=== PATIENT | male | born 1955 | race Caucasian/White ===

== ENCOUNTER 2019-09-07 11:07 | Emergency (ER) | payer OTHER ==
--- OUTSIDE RECORDS SUMMARY | 2019-09-07 11:19 | XMS REPORT | Continuity of Care Document ---
:1955 External Reference #:[id number] Author Name Keith Dahl DO FACC (transmitted by agent of provider Viv Hoskins) Address 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 Problems Description No Information Available Social History Type Date Description Comments Sex Unknown ETOH Use Occasionally consumes alcohol Tobacco Use Start: Unknown Patient has never smoked Recreational Drug Use Denies Drug Use Smoking Status Reviewed: 08/07/19 Patient has never smoked Exercise Type/Frequency Exercises regularly Allergies, Adverse Reactions, Alerts Active Allergies Reaction Severity Comments Date Amlodipine felt better after stopped taking it 08/07/2019 Medications Active Medications SIG Qnty Indications Ordering Provider Date Lisinopril 1 by mouth every Unknown 10mg Tablets day Multi Vitamin 1 by mouth every Unknown Tablets day Magnesium 1 by mouth every Unknown 250mg Tablets day Zinc OTC Unknown Potassium/ OTC Unknown Vitamin B Complex 1 by mouth every Unknown Tablets day History Medications Mag-200 1 by mouth every 60tabs Keith Dahl DO 08/07/2019 - 200mg day FACC 08/06/2019 Tablets Immunizations Description No Information Available Vital Signs Date Vital Result Comment 08/07/2019 11:27am Height 67 inches 5'7" Weight 194.00 lb without shoes Heart Rate 54 /min BP Systolic Sitting 124 mmHg lue reg cuff BP Diastolic Sitting 74 mmHg lue reg cuff BP Systolic Standing 118 mmHg lue reg cuff BP Diastolic Standing 72 mmHg lue reg cuff Respiratory Rate 14 /min BMI (Body Mass Index) 30.4 kg/m2 Ejection Fraction none Results Description No Information Available Procedures Date Code Description Status 08/07/2019 51520 EKG Tracing & Interpretation Completed Medical Devices Description No Information Available Encounters Description No Information Available Assessments Date Code Description Provider 08/07/2019 I71.2 Thoracic aortic aneurysm, without rupture Keith Dahl DO FACC Plan of Treatment Future Appointment(s):08/11/2019 10:00 am - Keith Dahl DO [facility]ACC at [facility] [place]08/07/2019 - Keith Dahl DO FACCI71.2 Thoracic aortic aneurysm, without ruptureNew Orders:Echocardiogram, Scheduled: Follow up:Schedule echo at [facility] [place] may need definity f/u 1 year Functional Status Description No Information Available Mental Status Description No Information Available Referrals Description No Information Available
--- OUTSIDE RECORDS SUMMARY | 2019-09-07 11:19 | XMS REPORT | Continuity of Care Document ---
:1955 External Reference #:[id number] Demographics Phone Unavailable Preferred Language Unknown Marital Status Unknown Oriental Orthodox Affiliation Unknown Race Unknown Ethnic Group Unknown Author Name Brooklyn Kang Description No Information Available Social History Type Date Description Comments Sex Unknown Allergies, Adverse Reactions, Alerts Description No Information Available Medications Description No Information Available Immunizations Description No Information Available Vital Signs Description No Information Available Results Description No Information Available Procedures Description No Information Available Medical Devices Description No Information Available Encounters Description No Information Available Assessments Description No Information Available Plan of Treatment No Information Available Functional Status Description No Information Available Mental Status Description No Information Available Referrals Description No Information Available
[2019-09-07 12:27] VITALS: BP 0/0
--- NOTE | 2019-09-07 12:35 | ED ---
Laceration/Wound HPI - HPI Summary HPI Summary: Patient is a 63yo M presenting to the ED with a right eyebrow laceration. Patient states he was sitting on a bench at a basketball game when he was struck by an opponent. He believes he scraped his head on the bleachers. Minimal bleeding. He also sustained an abrasion without bleeding to the R upper arm. Denies any pain to the arm, but endorses pain to the R eyebrow. This is mild, rated 2/10. Denies other injuries. Denies bleeding currently. - History of Current Complaint Stated Complaint: EYE LAC PER PT Time Seen by Provider: 09/07/19 11:29 Hx Obtained From: Patient Mechanism of Injury: Sharp/Blunt Trauma Onset/Duration: Sudden Onset Aggravating: Movement Alleviating: Compression Timing: Constant Onset Severity: Mild Pain Intensity: 3 Pain Scale Used: 0-10 Numeric Associated Signs & Symptoms: Negative - Allergy/Home Medications Allergies/Adverse Reactions: Allergies Allergy/AdvReac Type Severity Reaction Status Date / Time No Known Allergies Allergy Verified 09/07/19 11:11 PMH/Surg Hx/FS Hx/Imm Hx Previously Healthy: Yes Infectious Disease History: No Infectious Disease History: Denies: Traveled Outside the [place] in Last 30 Days - Social History Occupation: Unemployed Lives: With Family Alcohol Use: Occasionally Hx Substance Use: No Substance Use Type: Reports: None Hx Tobacco Use: No Smoking Status (MU): Never Smoked Tobacco Review of Systems Negative: Fever, Chills, Fatigue, Skin Diaphoresis Negative: Epistaxis, Dental Pain Negative: Palpitations, Chest Pain Negative: Arthralgia, Myalgia Positive: Other - abrasion to the R upper arm; laceration to the R eyebrow Neurological/Mental Status: Negative All Other Systems Reviewed And Are Negative: Yes Physical Exam Triage Information Reviewed: Yes Vital Signs On Initial Exam: Initial Vitals Temp Pulse Resp BP Pulse Ox 98.6 F 60 18 175/110 98 09/07/19 11:10 09/07/19 11:10 09/07/19 11:10 09/07/19 11:10 09/07/19 11:10 Vital Signs Reviewed: Yes Appearance: Positive: Well-Appearing, Well-Nourished Skin: Positive: Warm, Skin Color Reflects Adequate Perfusion, Other - laceration R eyebrow - 3cm superifical Head/Face: Positive: Normal Head/Face Inspection Eyes: Positive: EOMI, KATIE Neck: Positive: Supple Respiratory/Lung Sounds: Positive: Breath Sounds Present Cardiovascular: Positive: Normal Musculoskeletal: Positive: Strength/ROM Intact Neurological: Positive: Sensory/Motor Intact, Alert, Oriented to Person Place, Time Psychiatric: Positive: Affect/Mood Appropriate Procedures - Sedation Patient Received Moderate/Deep Sedation with Procedure: No Diagnostics - Vital Signs Vital Signs Temp Pulse Resp BP Pulse Ox 09/07/19 12:25 0 F 0 18 0/0 0 09/07/19 11:10 98.6 F 60 18 175/110 98 - Laboratory Lab Statement: Any lab studies that have been ordered have been reviewed, and results considered in the medical decision making process. Laceration Repair Course/Dx - Course Course Of Treatment: This patient is evaluated for laceration to the right eyebrow. Laceration is approximately 3 cm in length and appears to be more of an abrasion. Cleanse wound thoroughly with normal saline. Small amount of adhesive applied and sutures not required. Abrasion to the right upper arm without laceration or bleeding. Pt discharged in good condition. No PATEL or other sxs. - Differential Dx Differental Diagnoses: Other - abrasion, contusion - Clinical Impression Provider Diagnoses: Laceration of eyebrow Discharge ED - Sign-Out/Discharge Documenting (check all that apply): Patient Departure - Discharge Plan Condition: Stable Disposition: HOME Patient Education Materials: Skin Adhesive Care (ED) Referrals: Nimisha Wills MD [Primary Care Provider] - Additional Instructions: You may return to your normal activities The adhesive will slowly flake off You only require the bandage to the eye for the next few hours - Billing Disposition and Condition Condition: STABLE Disposition: Home
== END 2019-09-07 12:25 | disposition home or self-care (01) ==
LOC: ED 11:07
DX: S01.111A Laceration without foreign body of right eyelid and periocular area, initial encounter (principal); S40.811A Abrasion of right upper arm, initial encounter; W50.0XXA Accidental hit or strike by another person, initial encounter; Y92.9 Unspecified place or not applicable
CPT/HCPCS: 99282